=== PATIENT | male | born 1975 | race Caucasian/White ===

== ENCOUNTER 2017-10-07 17:30 | Emergency (ER) | payer SELFPAY ==
[2017-10-07] VITALS (9 sets, daily range): BP systolic 104–121; BP diastolic 63–76; PULSE 56–80; RESP 16–20; TEMP 97.9; O2SAT 96–99
[~2017-10-07 17:30] MED LIST: Z.0.NO CURRENT MEDS
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
[2017-10-07] MEDS ORDERED: MIDAZOLAM HCL 2 MG/2 ML VIAL IV PUSH ONE (18:45)
[2017-10-07] MEDS ORDERED: SODIUM CHLOR 0.9% 1000 ML INJ 1,000 ML IV ONE (18:45)
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
--- NOTE | 2017-10-07 20:36 | RADRPT ---
EXAM DATE: 10/07/2017 8:02 PM EDT AGE/SEX: 42 years / Male INDICATIONS: Post reduction. CLINICAL DATA: This is the patient's subsequent encounter. Patient reports that signs and symptoms h ave been present for 1 day and indicates a pain score of 10/10. MEDICAL/SURGICAL HISTORY: . History of Right shoulder dislocation None. COMPARISON: [facility] [place], SHOULDER RIGHT LTD (2VWS), 10/07/2017. . FINDINGS: Successful reduction of the right shoulder dislocation with no underlying fracture noted. CONCLUSION: Successful reduction of the right shoulder dislocation. No underlying fracture is noted. Electronically signed by: Kranthi Breen MD 10/07/2017 8:34 PM EDT
== END 2017-10-07 20:41 | disposition home or self-care (01) ==
LOC: PHED 17:30
DX: S43.014A Anterior dislocation of right humerus, initial encounter (principal); W22.8XXA Striking against or struck by other objects, initial encounter; Y92.814 Boat as the place of occurrence of the external cause; Z88.0 Allergy status to penicillin
CPT/HCPCS: 23650; 73030; 96361; 96374; 96375; 99285; J2250; J3010; J7030